=== PATIENT | male | born 1995 | race Caucasian/White ===

== ENCOUNTER 2017-08-14 | Emergency (ER) | payer OTHER ==
[~2017-08-14] VITALS: Ht 172.7 cm; Wt 111.7 kg
[~2017-08-14] MED LIST: ALBU0.0912 IH
[2017-08-14 00:07] VITALS: BP 154/100
--- NOTE | 2017-08-14 00:12 | NUR ---
WALKING WITH CRUTCHES TO ER BED 4
[2017-08-14] MEDS: HYDROcodone/APAP 5/325 MG 1 TAB TAB PO ONE (00:41)
--- NOTE | 2017-08-14 00:46 | NUR ---
21Y/M PRESENTS TO ER C/O LEFT ANKLE PAIN. PMH ASTHMA, NKA. PT STATES HE WAS PLAYING BASKETBALL AROUND 5PM WHEN HE FELL. PT DENIES LOC. PT HAS SWELLING OF LEFT ANKLE, +CMS, SKIN INTACT, NO REDNESS NOTED AT THIS TIME. PT TOOK IBUPROFEN AND NAPROXEN AT HOME W/ MINIMAL RELIEF. PT DENIES PAIN WHEN HE DOES NOT HAVE TOMOVE ANKLE, UPON MOVEMENT PT HAS ACHING PAIN 6/10, NON RADIATING. PT IN BED, FRIEND AT BEDSIDE, ER MD NOTIFIED OF PT STATUS.
[2017-08-14 01:49] VITALS: BP 154/100
--- NOTE | 2017-08-14 01:49 | NUR ---
Patient discharged with v/s stable. Written and verbal after care instructions given and explained. Patient alert, oriented and verbalized understanding of instructions. Ambulatory w/ crutches with steady gait. All questions addressed prior to discharge. ID band removed. Patient advised to follow up with PMD. Rx of naprozen 500mg given. Patient educated on indication of medication including possible reaction and side effects. Opportunity to ask questions provided and answered.
== END 2017-08-14 01:49 | disposition home or self-care (01) ==
LOC: MED
DX: S93.402A Sprain of unspecified ligament of left ankle, initial encounter (principal); J45.909 Unspecified asthma, uncomplicated; X58.XXXA Exposure to other specified factors, initial encounter; Y93.67 Activity, basketball; Y92.89 Other specified places as the place of occurrence of the external cause; Y99.8 Other external cause status
CPT/HCPCS: 73610; 99284; Q0092

== ENCOUNTER 2019-04-18 20:17 | Emergency (ER) | payer OTHER ==
[~2019-04-18] VITALS: Ht 172.7 cm; Wt 123.8 kg
[2019-04-18 20:25] VITALS: BP 143/91
[2019-04-19] MEDS ORDERED: NACL 0.9% 1,000 ML IV ONE (02:00)
[2019-04-19 02:26] LABS: APPEARANCE,URINE CLOUDY (CLEAR); BILIRUBIN,URINE 1+ (NEGATIVE); BLOOD, URINE 3+ (NEGATIVE); COLOR,URINE BROWN (YELLOW); LEUKOCYTE ESTERASE ,URINE 3+ (NEGATIVE); NITRITE, URINE POSITIVE (NEGATIVE); PH,URINE 6.5 (5.0-9.0); UGLUCOSE NEGATIVE (NEGATIVE)
[2019-04-19 02:27] LABS: RED CELL DISTRIBUTION WIDTH 13.5 % (11.6-13.7)
[2019-04-19 02:34] LABS: BASOPHILS # (AUTO) 0.1 K/uL (0.00-0.22); BASOPHILS % (AUTO) 0.4 % (0.0-2.0); EOSINOPHILS # (AUTO) 0.2 K/uL (0-0.4); HEMATOCRIT 41.2 % (36-52); HEMOGLOBIN 13.8 g/dL (12.0-18.0); LYMPHOCYTES # (AUTO) 2.5 K/uL (2.0-11.5); LYMPHOCYTES % (AUTO) 12.8 % (20.5-51.1); MEAN CORPUSCULAR HEMOGLOBIN 29 pg (27-31); MEAN CORPUSCULAR HGB CONC 34 g/dL (33-37); MEAN CORPUSCULAR VOLUME 86.5 fL (80-94); MONOCYTES # (AUTO) 1.8 K/uL (0.8-1.0); NEUTROPHILS # (AUTO) 15.1 K/uL (1.8-7.7); NEUTROPHILS % (AUTO) 76.8 % (42.2-75.2); PLATELET COUNT (AUTO) 314 K/uL (140-450); RED BLOOD CELL COUNT(AUTO) 4.76 MIL/uL (4.20-6.10)
[2019-04-19 02:35] LABS: ANION GAP 12.1 (8-16); CARBON DIOXIDE 26.9 mmol/L (21-32); CREATININE 1.2 mg/dL (0.7-1.3)
[2019-04-19 02:41] LABS: ALBUMIN 3.8 g/dL (3.4-5.0); TOTAL BILIRUBIN 0.7 mg/dL (0.0-1.0); WHITE BLOOD COUNT (AUTO) 19.6 K/uL (4.8-10.8)
[2019-04-19 02:46] LABS: RBC,URINE TOO NUMEROUS TO COUN /HPF (0-5); WBC,URINE TOO MANY TO COUNT /HPF (0-5)
[2019-04-19] MEDS ORDERED: SULFAMETH/TRIMETH DS 800/160MG 1 TAB PO STA (03:42)
[2019-04-19 05:33] VITALS: BP 125/62
== END 2019-04-19 05:10 | disposition home or self-care (01) ==
LOC: MED 20:17
DX: N39.0 Urinary tract infection, site not specified (principal); J45.909 Unspecified asthma, uncomplicated; Z79.899 Other long term (current) drug therapy
CPT/HCPCS: 36415; 80053; 81001; 85025; 87086; 87186; 99283; J7030

== ENCOUNTER 2020-01-21 17:25 | Emergency (ER) | payer OTHER ==
[~2020-01-21] VITALS: Ht 172.7 cm; Wt 111.8 kg
[2020-01-21 17:30] VITALS: BP 147/90
--- NOTE | 2020-01-21 17:41 | NUR ---
24 Y/O MALE FROM HOME C/O LOWER ABD PAIN X 3 WKS. STATES CONSTANT 8/10 PRESSURE TO LOWER ABD WITH BRIGHT RED BLOOD IN STOOL. STATES NAUSEA AND VOMITING THIS MORNING, DENIES DIARRHEA. ABD SOFT, ROUND, NONTENDER TO PALP. STATES HE FEELS CONSTIPATED. POSITIONED FOR COMFORT. VSS MEDHX: ASTHMA ALLERGIES: NKA
--- NOTE | 2020-01-21 17:42 | NUR ---
PT AMBULATED TO RESTROOM, URINE COLLECTED AT THIS TIME
--- NOTE | 2020-01-21 18:02 | NUR ---
DR MURCIA EXAMINING PT
[2020-01-21] MEDS ORDERED: NACL 0.9% 1,000 ML IV SCH (18:04)
[2020-01-21] MEDS ORDERED: MORPHINE SULFATE 4 MG/ML SYR IVP ONE (18:05)
[2020-01-21] MEDS ORDERED: ONDANSETRON 4 MG/2 ML VIAL IVP ONE (18:05)
--- NOTE | 2020-01-21 18:09 | NUR ---
20G IV PLACED TO LT AC, BLLOD CULTURES AND LABS DRAWN AT THIS TIME
--- NOTE | 2020-01-21 18:25 | NUR ---
PT TO CT VIA WHEELCHAIR
--- NOTE | 2020-01-21 18:34 | NUR ---
PT RETURNED FROM CT VIA WHEELCHAIR
[2020-01-21 18:41] LABS: APPEARANCE,URINE CLEAR (CLEAR); BILIRUBIN,URINE 1+ (NEGATIVE); BLOOD, URINE NEGATIVE (NEGATIVE); COLOR,URINE YELLOW (YELLOW); LEUKOCYTE ESTERASE ,URINE NEGATIVE (NEGATIVE); NITRITE, URINE NEGATIVE (NEGATIVE); PH,URINE 6.5 (5.0-9.0); UGLUCOSE NEGATIVE (NEGATIVE)
[2020-01-21 18:46] LABS: BASOPHILS % (AUTO) 0.3 % (0.0-2.0); EOSINOPHILS # (AUTO) 0.1 K/uL (0-0.4); HEMOGLOBIN 15.3 g/dL (12.0-18.0); LYMPHOCYTES # (AUTO) 1.8 K/uL (2.0-11.5); LYMPHOCYTES % (AUTO) 16.4 % (20.5-51.1); MEAN CORPUSCULAR HEMOGLOBIN 30 pg (27-31); MEAN CORPUSCULAR HGB CONC 34 g/dL (33-37); MEAN CORPUSCULAR VOLUME 86.8 fL (80-94); MONOCYTES # (AUTO) 0.8 K/uL (0.8-1.0); MONOCYTES % (AUTO) 7.6 % (1.7-9.3); NEUTROPHILS # (AUTO) 8.4 K/uL (1.8-7.7); NEUTROPHILS % (AUTO) 74.7 % (42.2-75.2); PLATELET COUNT (AUTO) 347 K/uL (140-450); RED BLOOD CELL COUNT(AUTO) 5.19 MIL/uL (4.20-6.10); RED CELL DISTRIBUTION WIDTH 13.6 % (11.6-13.7); WHITE BLOOD COUNT (AUTO) 11.2 K/uL (4.8-10.8)
--- NOTE | 2020-01-21 18:57 | NUR ---
DENIES NAUSEA, STATES DECREASE IN PAIN AT THIS TIME.
[2020-01-21 19:00] LABS: ALBUMIN 4.2 g/dL (3.4-5.0); ANION GAP 11.6 (8-16); CARBON DIOXIDE 29.1 mmol/L (21-32); CREATININE 1.3 mg/dL (0.6-1.3); POTASSIUM 3.7 mmol/L (3.5-5.1); TOTAL BILIRUBIN 0.4 mg/dL (0.0-1.0)
--- NOTE | 2020-01-21 19:07 | NUR ---
Pt report RECEIVED FROM TANO MAZARIEGOS. ASSUMED care OF PT at this time.
--- NOTE | 2020-01-21 19:39 | NUR ---
PT RESTING IN BED IN POSITION OF COMFORT, BED LOW AND LOCKED, 1 SIDERAIL UP, VSS, WILL CONTINUE TO MONITOR.
--- NOTE | 2020-01-21 20:30 | NUR ---
DR. STALEY AT BEDSIDE EXAMINING PT
[2020-01-21 20:55] VITALS: BP 136/86
--- NOTE | 2020-01-21 20:55 | NUR ---
DPatient discharged with v/s stable. Written and verbal after care instructions given and explained. Patient verbalized understanding. Ambulatory with steady gait. All questions addressed prior to discharge. Advised to follow up with PMD.
== END 2020-01-21 20:55 | disposition home or self-care (01) ==
LOC: MED 17:25
DX: R10.32 Left lower quadrant pain (principal); R11.2 Nausea with vomiting, unspecified; J45.909 Unspecified asthma, uncomplicated; Z79.899 Other long term (current) drug therapy
CPT/HCPCS: 36415; 74176; 80053; 81003; 83605; 85025; 85610; 85730; 86886; 86900; 86901; 87040; 96361; 96374; 96375; 99284; J2270; J2405; J7030

== ENCOUNTER 2020-01-29 07:31 | Day surgery (SDC) | payer OTHER ==
[~2020-01-29] VITALS: Ht 172.7 cm; Wt 113.9 kg
[2020-01-29] MEDS ORDERED: fentaNYL 0.05 MG/ML VIAL ONE (07:59)
[2020-01-29] MEDS ORDERED: diphenhydrAMINE 50 MG/ML VIAL ONE (07:59)
[2020-01-29] MEDS ORDERED: MIDAZOLAM 2 MG/2 ML VIAL ONE (07:59)
[2020-01-29] MEDS ORDERED: LIDOCAINE 2% 100 MG/5 ML UJET TP ONE (08:00)
[2020-01-29] MEDS ORDERED: MIDAZOLAM 2 MG/2 ML VIAL IVP ONE (08:55)
[2020-01-29] MEDS ORDERED: fentaNYL 0.05 MG/ML VIAL IVP ONE (08:55)
== END 2020-01-29 09:53 | disposition home or self-care (01) ==
LOC: MDS 07:31 → MMU 07:36 → MDS 09:53
PROVIDERS: ATTEND Internal Medicine Gastroenterology
DX: K62.5 Hemorrhage of anus and rectum (principal); K63.5 Polyp of colon; K59.00 Constipation, unspecified; J45.909 Unspecified asthma, uncomplicated; Z80.0 Family history of malignant neoplasm of digestive organs; Z87.891 Personal history of nicotine dependence
CPT/HCPCS: 45385; J1200; J2250; J3010

== ENCOUNTER 2020-05-20 03:35 | Emergency (ER) | payer OTHER ==
[~2020-05-20] VITALS: Ht 172.7 cm; Wt 116.6 kg
[2020-05-20 03:41] VITALS: BP 145/88
--- NOTE | 2020-05-20 03:48 | NUR ---
PT TAKEN TO BED 4
--- NOTE | 2020-05-20 03:58 | NUR ---
24 Y/O MALE PT PRESENTS TO ER WITH C/O THROAT PAIN X 2-3 DAYS. /10 PAIN. PT STATES HE HAS HAD DIFFICULTY SWALLOWING, AND SEEN HIS PCP 05/14/20. PCP STATED IT COULD POSSIBLY BE POST NASAL DRIP, OR MONONUCLEOSIS. PRESCRIBED PT BLANCA BID. PT HAS BEEN TAKING RX X 5 DAYS. DOESN'T KNOW MG. PT ALSO C/O MINOR RIGHT EAR PAIN. PT STATES HE HAD RIGHT TONSIL STONE YESTERDAY, WITH YELLOWISH BUMP, AND TWO BUMPS ON BACK OF TONGUE. DENIES COUGH, N/V/D, SOB, FEVER, HEADACHE. R/R EQUAL, AND UNLABORED. VSS. SIDE RAIL X1, BED IN LOW POSITION, WILL CONTINUE TO MONITOR. NKDA PMH: ASTHMA
--- NOTE | 2020-05-20 04:00 | NUR ---
Dr. Mcclain examining patient.
[2020-05-20 04:09] VITALS: BP 145/88
--- NOTE | 2020-05-20 04:11 | NUR ---
Patient discharged with v/s stable. Written and verbal after care instructions given and explained. Patient alert, oriented and verbalized understanding of instructions. Ambulatory with steady gait. All questions addressed prior to discharge. ID band removed. Patient advised to follow up with PMD. Rx of MOTRIN, PREDNISONE given. Patient educated on indication of medication including possible reaction and side effects. Opportunity to ask questions provided and answered.
== END 2020-05-20 04:11 | disposition home or self-care (01) ==
LOC: MED 03:35
DX: J02.9 Acute pharyngitis, unspecified (principal); J45.909 Unspecified asthma, uncomplicated; Z79.899 Other long term (current) drug therapy
CPT/HCPCS: 99283

== ENCOUNTER 2020-08-06 17:39 | Emergency (ER) | payer OTHER ==
[~2020-08-06] VITALS: Ht 175.3 cm; Wt 113.4 kg
[2020-08-06 17:47] VITALS: BP 155/79
--- NOTE | 2020-08-06 17:59 | NUR ---
WAIT AT LOBBY. HANDED ON URINE CUP.
--- NOTE | 2020-08-06 19:19 | NUR ---
TAKEN TO BED 04
--- NOTE | 2020-08-06 19:33 | NUR ---
Dr. Joy examining patient.
[2020-08-06 20:05] LABS: BASOPHILS # (AUTO) 0.1 K/uL (0.00-0.22); BASOPHILS % (AUTO) 0.7 % (0.0-2.0); EOSINOPHILS # (AUTO) 0.1 K/uL (0-0.4); EOSINOPHILS % (AUTO) 0.6 % (0.0-4.0); HEMATOCRIT 42.9 % (36-52); HEMOGLOBIN 14.3 g/dL (12.0-18.0); LYMPHOCYTES # (AUTO) 1.8 K/uL (2.0-11.5); LYMPHOCYTES % (AUTO) 14.5 % (20.5-51.1); MEAN CORPUSCULAR HEMOGLOBIN 29 pg (27-31); MEAN CORPUSCULAR HGB CONC 33 g/dL (33-37); MEAN CORPUSCULAR VOLUME 88.1 fL (80-94); MONOCYTES # (AUTO) 0.9 K/uL (0.8-1.0); MONOCYTES % (AUTO) 7.3 % (1.7-9.3); NEUTROPHILS # (AUTO) 9.6 K/uL (1.8-7.7); NEUTROPHILS % (AUTO) 76.9 % (42.2-75.2); PLATELET COUNT (AUTO) 341 K/uL (140-450); RED BLOOD CELL COUNT(AUTO) 4.86 MIL/uL (4.20-6.10); RED CELL DISTRIBUTION WIDTH 13.6 % (11.6-13.7); WHITE BLOOD COUNT (AUTO) 12.4 K/uL (4.8-10.8)
[2020-08-06 20:27] LABS: ANION GAP 15.5 (8-16); CARBON DIOXIDE 27.2 mmol/L (21-32); CREATININE 1.2 mg/dL (0.6-1.3); POTASSIUM 3.7 mmol/L (3.5-5.1)
--- NOTE | 2020-08-06 20:31 | NUR ---
PT RESTING IN BED QUIETLY PLAYING ON CELL PHONE. VSS, R/R EQUAL, AND UNLABORED. 0/10 PAIN. SIDE RAIL X1, BED IN LOW POSITION, WILL CONTINUE TO MONITOR.
[2020-08-06 20:33] LABS: ALBUMIN 4.1 g/dL (3.4-5.0); TOTAL BILIRUBIN 0.7 mg/dL (0.0-1.0)
--- NOTE | 2020-08-06 21:19 | NUR ---
Patient discharged with v/s stable. Written and verbal after care instructions given and explained. Patient verbalized understanding. Ambulatory with steady gait. All questions addressed prior to discharge. Advised to follow up with PMD.
[2020-08-06 21:21] VITALS: BP 155/79
== END 2020-08-06 21:19 | disposition home or self-care (01) ==
LOC: MED 17:39
DX: R07.9 Chest pain, unspecified (principal); J45.909 Unspecified asthma, uncomplicated; Z79.899 Other long term (current) drug therapy
CPT/HCPCS: 36415; 71045; 80053; 81002; 84484; 85025; 93005; 99285